=== PATIENT | male | born 2000 | race Caucasian/White ===

== ENCOUNTER → 2019-07-13 | Emergency (ER) | payer SELFPAY ==
[~2019-07-13] MED LIST: KETOROLAC 30 MG/ML VIAL IVP ONE; NS(*) 0.9% 1000 ML BAG 1,000 ML IV ONE; ONDA4TAB97 PO; ONDANSETRON 4 MG ODT TH SL ONE; ONDANSETRON 4 MG/2 ML VIAL IVP ONE; PROMETHAZINE 25 MG/ML 1 ML AMP IVP ONE; TRAM-420 PO; fentaNYL CITR 100 MCG/2 ML AMP IVP ONE; traMADol 50 MG TAB TH 2 TAB/BOTTLE PO ONE
[2019-07-13 21:32] LABS: PLATELET COUNT, AUTOMATED 262 K/uL (150-450)
[2019-07-13 22:08] VITALS: BP 128/61
--- NOTE | 2019-07-13 22:40 | ER Report ---
History and Physical Time Seen By MD: 20:41 Hx. of Stated Complaint: LEFT LOWER ABDOMINAL PAIN FOR 1 WEEK HPI/ROS CHIEF COMPLAINT: Left lower quadrant abdominal pain HISTORY OF PRESENT ILLNESS: 18-year-old male presents with his mother complaining of left lower quadrant abdominal pain for one week. Patient describes crampy intermittent pain. He notes some diarrhea. He denies fever or chills. He denies recent travel. He denies exposure to ill contacts. He has some nausea but no vomiting. He's noted no hematuria. There is no family history of kidney stones. Denies history of abdominal surgery. REVIEW OF SYSTEMS: Respiratory: No cough, no dyspnea. Cardiovascular: No chest pain, no palpitations. Gastrointestinal: As above Musculoskeletal: As above Allergies: Coded Allergies: No Known Drug Allergies (Unverified , 07/13/19) Home Meds Active Scripts Ondansetron Hcl (ZOFRAN) 4 Mg Tablet, 4 MG PO Q6H PRN for NAUSEA/VOMITING, #12 Prov:AARON VARELA DO 07/13/19 Tramadol Hcl (TRAMADOL HCL) 50 Mg Tablet, 1 TAB PO Q4-6H for pain, #12 MG TAKE ONE TABLET BY MOUTH EVERY SIX HOURS NEEDED Prov:AARON VARELA DO 07/13/19 Reviewed Nurses Notes: Yes Old Medical Records Reviewed: Yes Constitutional Vital Sign - Last 24 Hours 07/13/19 07/13/19 07/13/19 07/13/19 20:39 20:42 21:35 21:40 Temp 98.2 Pulse 65 58 55 Resp 18 B/P (MAP) 143/80 (101) 143/80 Pulse Ox 95 94 99 O2 Delivery Room Air 07/13/19 22:08 B/P (MAP) 128/61 (83) Physical Exam Vital signs stable, afebrile, pulse ox normal General Appearance: patient is alert, has no immediate need for airway protection and no current signs of toxicity. Mild distress, holding left lower abdomen Eyes: Pupils equal and round no injection. Respiratory: Cardiac: regular rate and rhythm Gastrointestinal: Abdomen is soft, mild left lower quadrant tenderness, no rebound or guarding, no masses, bowel sounds normal. Musculoskeletal: Neck: Neck is supple and non tender. No lymphadenopathy Extremities have full range of motion and are non tender. Skin: No rashes or lesions. [ ] DIFFERENTIAL DIAGNOSIS: After history and physical exam differential diagnosis was considered for abdominal pain including but not limited to appendicitis, cholecystitis, gastritis and urinary tract infection. Additionally,flank pain including but not limited to musculoskeletal causes, kidney stone, pyelonephritis, shingles, and intra-abdominal causes such as diverticulitis and appendicitis. Medical Decision Making Data Points Result Diagram: 07/13/19210107/13/192101 Laboratory Hematology Test 07/13/19 00:00 07/13/19 21:02 Erythrocyte Sedimentation Rate 1 mm/HOUR (0-15) White Blood Count 8.8 k/uL (4.5-11.0) Red Blood Count 5.61 M/uL (4.00-5.60) H Hemoglobin 18.0 g/dL (14.0-18.0) Hematocrit 50.9 % (42.0-52.0) Mean Corpuscular Volume 90.7 fL (80.0-96.0) Mean Corpuscular Hemoglobin 32.2 pg (26.0-33.0) Mean Corpuscular Hemoglobin Concent 35.4 g/dL (32.0-36.0) Red Cell Distribution Width 13.2 % (11.5-14.5) Platelet Count 262 K/uL (150-450) Mean Platelet Volume 8.3 fL (7.2-11.1) Neutrophils (%) (Auto) 66.2 % (39.4-72.5) Lymphocytes (%) (Auto) 25.1 % (17.6-49.6) Monocytes (%) (Auto) 5.2 % (4.1-12.4) Eosinophils (%) (Auto) 2.7 % (0.4-6.7) Basophils (%) (Auto) 0.8 % (0.3-1.4) Nucleated RBC Relative Count (auto) 0.1 /100WBC Neutrophils # (Auto) 5.8 K/uL (2.0-7.4) Lymphocytes # (Auto) 2.2 K/uL (1.3-3.6) Monocytes # (Auto) 0.5 K/uL (0.3-1.0) Eosinophils # (Auto) 0.2 K/uL (0.0-0.5) Basophils # (Auto) 0.1 K/uL (0.0-0.1) Nucleated RBC Absolute Count (auto) 0.01 K/uL Chemistry Test 07/13/19 21:02 Sodium Level 140 mmol/L (137-145) Potassium Level 3.3 mmol/L (3.5-5.0) Chloride Level 101 mmol/L (98-107) Carbon Dioxide Level 27 mmol/L (22-30) Blood Urea Nitrogen 11 mg/dl (9-21) Creatinine 1.00 mg/dl (0.66-1.25) Glomerular Filtration Rate Calc > 60.0 Random Glucose 111 mg/dl (75-110) Calcium Level 9.7 mg/dl (8.4-10.2) Total Bilirubin 0.7 mg/dl (0.2-1.3) Aspartate Amino Transf (AST/SGOT) 28 U/L (0-35) Alanine Aminotransferase (ALT/SGPT) 33 U/L (0-56) Alkaline Phosphatase 76 U/L (0-126) Total Protein 8.0 g/dl (6.3-8.2) Albumin 4.7 g/dl (3.5-5.0) Amylase Level 93 U/L (0-110) Lipase 54 U/L (23-300) Urinalysis Test 07/13/19 21:45 Urine Color Yellow Urine Clarity Clear Urine pH 6.0 pH (4.8-9.5) Urine Specific Matthews 1.016 Urine Protein Negative mg/dL (NEGATIVE) Urine Glucose (UA) Negative mg/dL (NEGATIVE) Urine Ketones Negative mg/dL (NEGATIVE) Urine Blood Negative (NEGATIVE) Urine Nitrite Negative (NEGATIVE) Urine Bilirubin Negative (NEGATIVE) Urine Urobilinogen Negative mg/dL (0.2-1.9) Urine Leukocyte Esterase Negative (NEGATIVE) Urine RBC None /HPF (0-2/HPF) Urine WBC <1 /HPF (0-5/HPF) Urine Squamous Epithelial Cells None /LPF (</=FEW) Urine Bacteria Negative /HPF (NONE-FEW) Urine Mucus None /HPF (NONE-FEW) ED Course/Re-evaluation Clinical Indication for ER IV: Hydration, IV Access ED Course Patient was admitted to an examination room. H&P was done. The differential diagnoses was considered. Patient a peripheral IV established. He was given fluids, Zofran and fentanyl 50 g as well as Toradol 30. Diagnostic studies returned normal white blood cell count, normal sedimentation rate, normal urinalysis. I did discuss the option of a CAT scan with the patient and his mother. I do not think that it would likely show anything. Patient's advised a clear liquid diet. He likely has colitis. He is advised to follow-up with primary care. He is given medication for symptomatically management tramadol and Zofran. He is also advised to take ibuprofen for inflammatory pain relief. Decision to Disposition Date: Jul 13, 2019 Decision to Disposition Time: 22:38 Depart Departure Latest Vital Signs Vital Signs Date Time Temp Pulse Resp B/P (MAP) Pulse Ox O2 Delivery O2 Flow Rate FiO2 07/13/19 22:08 128/61 (83) 07/13/19 21:40 55 99 07/13/19 20:42 98.2 18 Room Air Impression: Primary Impression: Left lower quadrant abdominal pain Additional Impressions: Left flank pain Diarrhea Condition: Improved Disposition: HOME OR SELF-CARE Referrals: DENY SOTO MD, FARRUKH MD New Scripts Ondansetron Hcl (ZOFRAN) 4 Mg Tablet 4 MG PO Q6H PRN for NAUSEA/VOMITING, #12 Prov: AARON VARELA DO 07/13/19 Tramadol Hcl (TRAMADOL HCL) 50 Mg Tablet 1 TAB PO Q4-6H for pain, #12 MG TAKE ONE TABLET BY MOUTH EVERY SIX HOURS NEEDED Prov: AARON VARELA DO 07/13/19 Patient Instructions: Abdominal Pain (ED), Clear Liquid Diet (ED) Additional Instructions: Take ibuprofen 200 mg 3 tablets 3 times a day for inflammatory pain relief Follow clear liquid diet for 24-48 hours and advance to Rachid diet, bananas, rice, applesauce and toast Follow other with primary care doctors listed on your paperwork if unimproved in 3-5 days Return to the ER for any worsening Problem Qualifiers AARON VARELA DO Jul 13, 2019 22:40
== END ==
LOC: ER 20:42
DX: R19.7 Diarrhea, unspecified (principal); R10.32 Left lower quadrant pain; M54.9 Dorsalgia, unspecified
CPT/HCPCS: 81001; 82150; 83690; 85025; 85651; 96361; 96374; 96375; 99284; C9399; J2405; J2550; J3010; J7030; S0119; 82040; 82247; 82310; 82374; 82435; 82565; 82947; 84075; 84132; 84155; 84295; 84450; 84460; 84520; J1885